=== PATIENT | female | born 1990 | race Caucasian/White ===

== ENCOUNTER 2021-07-12 11:56 | Outpatient (CLI) | payer BC ==
[2021-07-13 14:23] LABS: SARS-CoV-2 IgG Ab Non-Reactive (NonReactive)
[2021-07-13 14:50] LABS: SARS-CoV-2 IgG Index 0.02 S/CO (< 1.40)
== END 2021-07-12 11:57 | disposition home or self-care (01) ==
LOC: SCSRAD 11:56
PROVIDERS: ATTEND Family Medicine
DX: Z01.84 Encounter for antibody response examination (principal); J06.9 Acute upper respiratory infection, unspecified; Z20.822 Contact with and (suspected) exposure to COVID-19
CPT/HCPCS: 36415; 71046; 86769